=== PATIENT | female | born 1990 | race Caucasian/White ===

== ENCOUNTER 2018-03-16 12:48 | Emergency (ER) | payer SELFPAY ==
[2013-02-22 20:10] VITALS: BMI 18.6
[2018-03-16 13:47] LABS: APPEARANCE CLEAR (CLEAR); BILIRUBIN NEGATIVE (NEGATIVE); COLOR YELLOW (YELLOW); GLUCOSE NEGATIVE (NEGATIVE); KETONE NEGATIVE (NEGATIVE); NITRITE NEGATIVE (NEGATIVE); PROTEIN NEGATIVE (NEGATIVE); SPECIFIC GRAVITY 1.015 (1.005-1.020); UROBILINOGEN NORMAL (NORMAL)
[2018-03-16 13:49] LABS: BACTERIA MODERATE /hpf (NONE SEEN); MUCUS <1+ /lpf (NONE SEEN); SPERMATOZOA PRESENT /hpf (NONE SEEN); WHITE CELLS - URINE 0-5 /hpf (0-5)
[2018-03-16 14:35] LABS: HCG URINE NEGATIVE (NEGATIVE)
[2018-03-18 22:06] LABS: CHLAMYDIA TRACHOMATIS, NAA Negative (Negative)
== END 2018-03-16 15:59 | disposition home or self-care (01) ==
LOC: D.ER 12:48
PROVIDERS: Emergency Medicine
DX: R10.2 Pelvic and perineal pain (principal); F17.200 Nicotine dependence, unspecified, uncomplicated